=== PATIENT | male | born 1965 | race Hispanic/Latino ===

== ENCOUNTER 2024-03-21 11:38 | Emergency (ER) | payer OTHER, SELFPAY ==
--- NOTE | ~2024-03-21 | XR_ITS ---
EXAMINATION: XR pelvis 1-2V DATE: 03/21/2024 12:55 INDICATION: Right groin pain while riding a horse TECHNIQUE: An anteroposterior view of the pelvis was obtained. COMPARISON: None. FINDINGS: Mild lower lumbar dextrocurvature centered at a transitional lumbosacral segment. There is at least m oderate and potentially severe lower lumbar spondylosis. Bone alignment is otherwise normal. No fract ure or suspected osteonecrosis. Mild osteoarthritis at the bilateral hip and sacroiliac joints. IMPRESSION: 1. Mild bilateral hip and sacroiliac osteoarthritis. No acute osseous abnormality. 2. Mild lower lumbar dextrocurvature with moderate to potentially severe lower lumbar spondylosis and transitional lumbosacral segment. Reviewed, dictated and finalized at location A. IMPRESSION: 1. Mild bilateral hip and sacroiliac osteoarthritis. No acute osseous abnormali ty. 2. Mild lower lumbar dextrocurvature with moderate to potentially severe lower lumbar spondylosis and transitional lumbosacral segment.
[2024-03-21 11:44] VITALS: BP 139/89; PULSE 59; RESP 14; TEMP 36.6; O2SAT 95
[2024-03-21] MEDS: KETOROLAC (*BKC) 60 MG/2 ML VIAL IM (13:03)
[2024-03-21 13:24] LABS: Appearance Urine Clear (Clear); Bilirubin Urine Negative (Negative); Blood Urine Negative (Negative); Color Urine Yellow (Yellow); Glucose Urine UA Negative (Negative); Ketones Urine 2+ mg/dL (Negative); Leukocyte Esterase Ur Negative LEU/UL (Negative); Nitrate Urine Negative (Negative); Protein Urine Negative (Negative); Specific Grav Ur 1.027 (1.001-1.035)
[2024-03-21 13:27] LABS: Add Urine Microscopic? YES
--- NOTE | 2024-03-21 14:44 | ED.GENADULT ---
HPI - General Adult General Chief complaint: Unspecified Stated complaint: GROIN PAIN Time Seen by Provider: 03/21/24 12:14 History of Present Illness HPI narrative: Patient is a 58-year-old male who presents ER with pain to the right inguinal region. He reports he did strike his groin on a saddle while riding a horse. He has pain with straight leg raise but not with pulling his knee up towards his chest or internally/ externally rotating. No fevers or chills or sweats. No urinary symptoms Related Data Allergies Allergy/AdvReac Type Severity Reaction Status Date / Time No Known Allergies Allergy Verified 03/21/24 11:39 Review of Systems Constitutional: Constitutional: Reports no additional constitutional complaints ENT: Reports system reviewed and no additional complaints, except as documented Cardiovascular: Cardiovascular: Reports no additional cardiovascular complaints Respiratory: Respiratory: Reports no additional respiratory complaints PMFSH Past Medical History Medical History (Updated 03/21/24 @ 14:49 by Deny Cardoza MD) Healthy adult male Surgical History Surgical History (Updated 03/21/24 @ 14:49 by Deny Cardoza MD) No history of previous surgery Exam Narrative: GENERAL: Well-appearing, well-nourished, and in no acute distress. HEAD: Normocephalic, atraumatic. ENT: Mucous membranes moist. NECK: Supple. CHEST: Clear to auscultation. No respiratory distress. HEART: Regular rate and rhythm. Normal peripheral pulses. ABDOMEN: Soft, nontender, nondistended. mild inguinal right lymphadenopathy. EXTREMITIES: Normal range of motion. No edema. SKIN: Warm, dry, no rash. NEURO: Alert and oriented x3. PSYCH: Normal mood and affect. Course Course Emergency Course: Informed of results. Will place on b.i.d. anti-inflammatories. May have a strain or may be just related to lymphadenopathy. Either way conservative treatment. Vital Signs Vital signs: Vital Signs Temperature 97.9 F 03/21/24 11:44 Pulse Rate 59 L 03/21/24 11:44 Respiratory Rate 14 03/21/24 11:44 Blood Pressure 139/89 03/21/24 11:44 Pulse Oximetry 95 03/21/24 11:44 Oxygen Delivery Room Air 03/21/24 11:44 Temperature 97.9 F 03/21/24 11:44 Pulse Rate 59 L 03/21/24 11:44 Respiratory Rate 14 03/21/24 11:44 Blood Pressure 139/89 03/21/24 11:44 Pulse Oximetry 95 03/21/24 11:44 Oxygen Delivery Room Air 03/21/24 11:44 Medical Decision Making Vital Signs Vital Signs: Vital Signs Temperature 97.9 F 03/21/24 11:44 Pulse Rate 59 L 03/21/24 11:44 Respiratory Rate 14 03/21/24 11:44 Blood Pressure 139/89 03/21/24 11:44 Pulse Oximetry 95 03/21/24 11:44 Oxygen Delivery Room Air 03/21/24 11:44 Temperature 97.9 F 03/21/24 11:44 Pulse Rate 59 L 03/21/24 11:44 Respiratory Rate 14 03/21/24 11:44 Blood Pressure 139/89 03/21/24 11:44 Pulse Oximetry 95 03/21/24 11:44 Oxygen Delivery Room Air 03/21/24 11:44 Lab Data Labs: Lab Results 03/21/24 Range/Units 13:11 Urine Color Yellow (Yellow) Urine Appearance Clear (Clear) Urine pH 5.0 (5.0-9.0) Ur Specific Jansen 1.027 (1.001-1.035) Urine Protein Negative (Negative) mg/dL Urine Glucose (UA) Negative (Negative) mg/dL Urine Ketones 2+ H (Negative) mg/dL Ur Blood (Man) Negative (Negative) Urine Nitrate Negative (Negative) Urine Bilirubin Negative (Negative) Urine Urobilinogen 1.0 (<2.0) mg/dL Leukocyte Esterase Rfl Negative (Negative) BYRON/UL Imaging Data Radiologist's impression: ITS Impressions Pelvis X-Ray 03/21/24 12:58 IMPRESSION: 1. Mild bilateral hip and sacroiliac osteoarthritis. No acute osseous abnormality. 2. Mild lower lumbar dextrocurvature with moderate to potentially severe lower lumbar spondylosis and transitional lumbosacral segment. Discharge Plan Discharge Clinical Impression: Marjorie
[2024-03-21 14:55] VITALS: BP 139/87; PULSE 79; RESP 16; TEMP 36.6; O2SAT 97
== END 2024-03-21 14:57 | disposition home or self-care (01) ==
PROVIDERS: Emergency Provider Emergency Medicine
DX: R59.1 Generalized enlarged lymph nodes (principal)
CPT/HCPCS: 72170; 81001; 96372; 99283; J1885